=== PATIENT | female | born 1975 | race African-American/Black ===

== ENCOUNTER 2016-08-28 18:59 | Emergency (ER) | payer MEDICAID ==
[~2016-08-28] VITALS: Ht 157.5 cm; Wt 80.4 kg
[~2016-08-28 18:59] MED LIST: CARB200T PO; FOLI-43 PO; PHEN100C4 PO
[2016-08-28 19:02] VITALS: BP 113/85
[2016-08-28] MEDS ORDERED: DIPHENHYDRAMINE 25MG CAPSULE PO ONE (23:15)
[2016-08-28] MEDS ORDERED: DIPHENHYDRAMINE HCL/ZINC ACET 28 GM CREAM TOP STA (23:59)
[2016-08-29] MEDS ORDERED: HYDROCORTISONE 1% CREAM 30GM TOP ONE
== END 2016-08-29 | disposition home or self-care (01) ==
LOC: ER 22:23
DX: S40.861A Insect bite (nonvenomous) of right upper arm, initial encounter (principal); S40.862A Insect bite (nonvenomous) of left upper arm, initial encounter; S20.369A Insect bite (nonvenomous) of unspecified front wall of thorax, initial encounter; S10.96XA Insect bite of unspecified part of neck, initial encounter; S00.86XA Insect bite (nonvenomous) of other part of head, initial encounter; S80.862A Insect bite (nonvenomous), left lower leg, initial encounter; S80.861A Insect bite (nonvenomous), right lower leg, initial encounter; Z88.8 Allergy status to other drugs, medicaments and biological substances; W57.XXXA Bitten or stung by nonvenomous insect and other nonvenomous arthropods, initial encounter; Y93.89 Activity, other specified; Y92.89 Other specified places as the place of occurrence of the external cause; Y99.8 Other external cause status
CPT/HCPCS: 99283